=== PATIENT | male | born 1945 | race Caucasian/White ===

== ENCOUNTER 2016-12-02 08:51 | Inpatient (IN) | payer MEDICARE, BC ==
[~2016-12-02] VITALS: Ht 177.8 cm; Wt 83.6 kg
[~2016-12-02 08:51] MED LIST: CRANBERRY CONC500 MG PO; CRANBERRY500 M3 PO; DIOVAN320 MG PO; FISH OIL CONC1000 MG PO; FLOMAX 0.40.4 MG/CAP PO; GLUCOSAMINE/CHONDROI PO; NO HOME MEDICATIONS; NORVASC 10MG10 MG PO; VITAMIN C500 MG PO; [UNRECOGNIZED DRUG - OTHER] PO; [UNRECOGNIZED DRUG - REMARK]
[2017-01-04] VITALS (11 sets, daily range): BP systolic 111–140; BP diastolic 59–86; PULSE 62–81; TEMP 97.5–98.2
[2017-01-04] MEDS ORDERED: DIOVAN 160MG160 MG PO (06:22)
[2017-01-05 01:28] VITALS: BP 132/60; PULSE 71; TEMP 97.5
[2017-01-05 05:31] VITALS: BP 142/59; PULSE 72; TEMP 97.5
[2017-01-05 08:00] LABS: BASO % 0.1 % (0.0-2.0); GRAN # 12.8 (1.4-6.5); GRAN % 88.2 % (42.2-75.2); HEMATOCRIT 44.3 % (42.0-52.0); HEMOGLOBIN 14.8 g/dl (13.5-18.0); LYMPH # 0.4 (1.2-3.4); MEAN CELL VOLUME 91 fl (80.0-100.0); MEAN CORPUSCULAR HEMOGLOBIN 31 pg (27.0-31.0); MEAN CORPUSCULAR HGB CONC 33 g/dl (33.0-37.0); MEAN PLATELET VOLUME 9.5 fl (7.4-10.4); MONO # 1.2 (0.1-0.6); MONO % 7.9 % (1.7-9.3); PLATELET COUNT 210 K/mm3 (130-400); RED BLOOD COUNT 4.86 M/mm3 (4.20-5.60); REDCELL DISTRIBUTION WIDTH-CV 13.1 % (11.5-14.5); WHITE BLOOD COUNT 14.5 K/mm3 (4.8-10.8)
[2017-01-05 08:10] LABS: CALCIUM 8.7 mg/dL (8.4-10.2); CREATININE, serum 0.78 mg/dL (0.66-1.25); POTASSIUM 4.1 mmol/L (3.4-5.0)
[2017-01-05 09:37] VITALS: BP 124/60; PULSE 68; TEMP 98.1
[2017-01-05 13:50] VITALS: BP 131/78; PULSE 69; TEMP 98.1
== END 2017-01-05 14:20 | disposition home or self-care (01) | DRG 716 ==
LOC: INPTSU 01-04 05:22 → SURG 01-04 07:30
PROVIDERS: Urology
PROC: 8E0W4CZ Robotic Assisted Procedure of Trunk Region, Percutaneous Endoscopic Approach (ICD-10-PCS; 2017-01-04)
PROC: 0VB04ZZ Excision of Prostate, Percutaneous Endoscopic Approach (ICD-10-PCS; principal; 2017-01-04 07:30)
DX: C61 Malignant neoplasm of prostate (principal); I10 Essential (primary) hypertension
CPT/HCPCS: A9284; C1713; J0690; J1100; J1170; J1885; J2405; J2704; J2765; J3010; J7120

== ENCOUNTER 2017-06-29 12:30 | Day surgery (SDC) | payer MEDICARE, BC ==
[2017-06-29] VITALS (443 sets, daily range): BP systolic 84–147; BP diastolic 54–104; PULSE 46–64; TEMP 97–97.1; O2SAT 70–100
[~2017-06-29] VITALS: Ht 177.8 cm; Wt 83.4 kg
[~2017-06-29 12:30] MED LIST changes: +DIOVAN 160MG160 MG PO
[2017-06-29] MEDS ORDERED: ASPIRIN 81M81 MG/TA2 PO (13:05)
[2017-06-29 13:14] LABS: HEMATOCRIT 47.1 % (42.0-52.0); HEMOGLOBIN 16.3 g/dl (13.5-18.0); MEAN CELL VOLUME 90 fl (80.0-100.0); MEAN CORPUSCULAR HEMOGLOBIN 31 pg (27.0-31.0); MEAN CORPUSCULAR HGB CONC 35 g/dl (33.0-37.0); MEAN PLATELET VOLUME 9.1 fl (7.4-10.4); PLATELET COUNT 186 K/mm3 (130-400); RED BLOOD COUNT 5.21 M/mm3 (4.20-5.60)
[2017-06-29 13:31] LABS: CALCIUM 9.5 mg/dL (8.4-10.2); CREATININE, serum 0.82 mg/dL (0.66-1.25); PARTIAL THROMBOPLASTIN TIME 28.5 SECONDS (26.0-37.0); POTASSIUM 4.3 mmol/L (3.4-5.0)
[2017-06-29 14:03] LABS: PROTHROMBIN TIME 11.7 SECONDS (9.7-12.8)
[2017-06-30] VITALS (404 sets, daily range): BP systolic 109–126; BP diastolic 59–67; PULSE 59–64; TEMP 97–98.2; O2SAT 90–100
[2017-06-30 06:46] LABS: BASO % 0.4 % (0.0-2.0); EOS # 0.1 (0.0-0.7); EOS % 0.9 % (0-4.0); GRAN # 6.2 (1.4-6.5); GRAN % 80.3 % (42.2-75.2); HEMATOCRIT 40.6 % (42.0-52.0); LYMPH # 0.6 (1.2-3.4); LYMPH % 7.9 % (20.0-51.0); MEAN CELL VOLUME 90 fl (80.0-100.0); MEAN CORPUSCULAR HEMOGLOBIN 31 pg (27.0-31.0); MEAN CORPUSCULAR HGB CONC 34 g/dl (33.0-37.0); MEAN PLATELET VOLUME 9.1 fl (7.4-10.4); MONO # 0.8 (0.1-0.6); MONO % 10.1 % (1.7-9.3); PLATELET COUNT 177 K/mm3 (130-400); RED BLOOD COUNT 4.52 M/mm3 (4.20-5.60); REDCELL DISTRIBUTION WIDTH-CV 12.9 % (11.5-14.5)
[2017-06-30 06:52] LABS: HEMOGLOBIN 13.9 g/dl (13.5-18.0)
[2017-06-30 07:01] LABS: CALCIUM 8.6 mg/dL (8.4-10.2); CREATININE, serum 0.82 mg/dL (0.66-1.25); POTASSIUM 3.9 mmol/L (3.4-5.0)
[2017-06-30] MEDS ORDERED: BRILINTA90 MG PO (09:35)
[2017-06-30] MEDS ORDERED: TOPROL XL 25MG25 MG PO (09:37)
[2017-06-30] MEDS ORDERED: NITROSTAT0.4 MG/TAB SL (09:37)
[2017-06-30] MEDS ORDERED: ASPIRIN 81M81 MG/TA2 PO (09:38)
[2017-06-30] MEDS ORDERED: LIPITOR 40MG TA40 MG PO (09:40)
[2017-06-30] MEDS ORDERED: NORVASC 5MG5 MG/TAB PO (09:41)
== END 2017-06-30 13:00 | disposition home or self-care (01) ==
LOC: COL.CAR 12:30 → ICU 15:30 → COL.CAR 06-30 13:00
DX: I25.110 Atherosclerotic heart disease of native coronary artery with unstable angina pectoris (principal); I10 Essential (primary) hypertension; Z80.9 Family history of malignant neoplasm, unspecified; E78.2 Mixed hyperlipidemia; Z82.3 Family history of stroke
CPT/HCPCS: OP; C9600; J0461; J0583; J2250; J3010; Q9967

== ENCOUNTER 2017-08-03 18:40 | Emergency (ER) | payer MEDICARE, BC ==
[~2017-08-03] VITALS: Ht 175.3 cm; Wt 80.5 kg
[~2017-08-03 18:40] MED LIST changes: +ASPIRIN 81M81 MG/TA2 PO; +BRILINTA90 MG PO; +LIPITOR 40MG TA40 MG PO; +NITROSTAT0.4 MG/TAB SL; +NORVASC 5MG5 MG/TAB PO; +TOPROL XL 25MG25 MG PO
[2017-08-03 18:45] VITALS: BP 141/65; TEMP 97.6
[2017-08-03 19:32] VITALS: PULSE 60
== END 2017-08-03 19:43 | disposition home or self-care (01) ==
LOC: COL.ER 18:40
DX: S50.11XA Contusion of right forearm, initial encounter (principal); I10 Essential (primary) hypertension; E78.5 Hyperlipidemia, unspecified; I25.10 Atherosclerotic heart disease of native coronary artery without angina pectoris; Z79.82 Long term (current) use of aspirin; Z88.6 Allergy status to analgesic agent; Z95.5 Presence of coronary angioplasty implant and graft; X58.XXXA Exposure to other specified factors, initial encounter; Y92.009 Unspecified place in unspecified non-institutional (private) residence as the place of occurrence of the external cause

== ENCOUNTER 2017-10-21 12:36 | Outpatient (RCR) | payer MEDICARE, BC | END 2017-10-23 | disposition home or self-care (01) | LOC: COL.CR | DX: Z48.812 Encounter for surgical aftercare following surgery on the circulatory system (principal); Z95.5 Presence of coronary angioplasty implant and graft; I25.10 Atherosclerotic heart disease of native coronary artery without angina pectoris ==

== ENCOUNTER 2017-10-31 14:44 | Outpatient (RCR) | payer MEDICARE, BC | END 2017-11-02 12:53 | disposition home or self-care (01) | LOC: COL.CR 14:44 | DX: Z48.812 Encounter for surgical aftercare following surgery on the circulatory system (principal); Z95.5 Presence of coronary angioplasty implant and graft ==

== ENCOUNTER 2018-02-19 12:40 | Emergency (ER) | payer MEDICARE, BC ==
[~2018-02-19] VITALS: Ht 175.3 cm; Wt 78.2 kg
[2018-02-19 12:42] VITALS: TEMP 98.6
[2018-02-19] MEDS ORDERED: AMOXICILLIN 8751 TAB PO (12:48)
[2018-02-19 13:16] LABS: BASO % 0.5 % (0.0-2.0); EOS # 0.1 (0.0-0.7); EOS % 1.5 % (0-4.0); GRAN # 5.8 (1.4-6.5); GRAN % 76.4 % (42.2-75.2); HEMATOCRIT 40.6 % (42.0-52.0); HEMOGLOBIN 13.6 g/dl (13.5-18.0); LYMPH # 0.6 (1.2-3.4); LYMPH % 8.3 % (20.0-51.0); MEAN CELL VOLUME 93 fl (80.0-100.0); MEAN CORPUSCULAR HEMOGLOBIN 31 pg (27.0-31.0); MEAN CORPUSCULAR HGB CONC 34 g/dl (33.0-37.0); MEAN PLATELET VOLUME 9.3 fl (7.4-10.4); MONO % 12.9 % (1.7-9.3); PLATELET COUNT 205 K/mm3 (130-400); RED BLOOD COUNT 4.37 M/mm3 (4.20-5.60); REDCELL DISTRIBUTION WIDTH-CV 13.4 % (11.5-14.5)
[2018-02-19 13:27] LABS: ALBUMIN 3.4 gm/dL (3.5-5.0); BILIRUBIN,TOTAL 1.3 mg/dL (0.0-1.0); CALCIUM 8.5 mg/dL (8.4-10.2); CREATININE, serum 0.72 mg/dL (0.66-1.25); POTASSIUM 3.8 mmol/L (3.4-5.0); TOTAL PROTEIN 6.3 gm/dL (6.4-8.2)
[2018-02-19] MEDS ORDERED: ULTRAM 50MG TAB50 MG PO (15:15)
[2018-02-19 15:31] VITALS: BP 132/80; PULSE 72
== END 2018-02-19 15:32 | disposition home or self-care (01) ==
LOC: COL.ER 12:40
PROVIDERS: Nurse Practitioner Primary Care
DX: L03.114 Cellulitis of left upper limb (principal); Z98.890 Other specified postprocedural states; Z95.9 Presence of cardiac and vascular implant and graft, unspecified; Z79.82 Long term (current) use of aspirin
CPT/HCPCS: J0696; J2270

== ENCOUNTER → 2019-04-18 | Outpatient (CLI) | payer MEDICARE, BC ==
[~2019-04-18] MED LIST changes: +AMOXICILLIN 8751 TAB PO; +ULTRAM 50MG TAB50 MG PO
== END ==
LOC: COL.RAD 12:51
DX: M50.30 Other cervical disc degeneration, unspecified cervical region (principal); M48.02 Spinal stenosis, cervical region

== ENCOUNTER 2020-01-20 15:22 | Emergency (ER) | payer MEDICARE, BC ==
[~2020-01-20] VITALS: Ht 172.7 cm; Wt 70.5 kg
[2020-01-20 15:32] VITALS: TEMP 97.1
[2020-01-20 15:59] LABS: BASO # 0.1 (0.0-0.2); BASO % 0.9 % (0.0-2.0); EOS # 0.1 (0.0-0.7); EOS % 1.6 % (0-4.0); GRAN % 74.6 % (42.2-75.2); HEMATOCRIT 43.7 % (42.0-52.0); HEMOGLOBIN 14.9 g/dl (13.5-18.0); LYMPH # 0.8 (1.2-3.4); LYMPH % 11.6 % (20.0-51.0); MEAN CELL VOLUME 90 fl (80.0-100.0); MEAN CORPUSCULAR HEMOGLOBIN 31 pg (27.0-31.0); MEAN CORPUSCULAR HGB CONC 34 g/dl (33.0-37.0); MEAN PLATELET VOLUME 9.4 fl (7.4-10.4); MONO # 0.7 (0.1-0.6); PLATELET COUNT 214 K/mm3 (130-400); RED BLOOD COUNT 4.84 M/mm3 (4.20-5.60); REDCELL DISTRIBUTION WIDTH-CV 12.7 % (11.5-14.5)
[2020-01-20 16:04] LABS: ALANINE AMINOTRANSFERASE 15 U/L (4-49); ALBUMIN 4.1 gm/dL (3.5-5.0); ALKALINE PHOSPHATASE 78 U/L (50-136); ANION GAP 7 mmol/L (7-16); AST,SGOT 24 U/L (15-37); BILIRUBIN,TOTAL 0.8 mg/dL (0.0-1.0); BLOOD UREA NITROGEN 18 mg/dL (9-20); CALCIUM 9.3 mg/dL (8.4-10.2); CARBON DIOXIDE 27 mmol/L (22-30); CHLORIDE 103 mmol/L (98-107); CREATINE KINASE 84 U/L (55-170); CREATININE, serum 0.85 (0.66-1.25); GLUCOSE 116 mg/dL (74-106); LIPASE 370 U/L (23-300); PROTHROMBIN TIME 11.2 SECONDS (9.7-12.8); SODIUM 137 mmol/L (137-145); TOTAL PROTEIN 6.9 gm/dL (6.4-8.2)
[2020-01-20 16:07] LABS: C-REACTIVE PROTEIN < 0.5 mg/dL (0.0-0.9)
[2020-01-20 16:15] LABS: TROPONIN-I < 0.012 ng/mL (0.000-0.035)
[2020-01-20 17:36] LABS: COLLECTION METHOD CLEAN CATCH
[2020-01-20] MEDS ORDERED: PERCOCET 325 MG1 TA2 PO (17:38)
[2020-01-20 17:42] LABS: MUCOUS Present /lpf; PH 7 (5-8); SQUAMOUS EPITHELIAL None Seen /hpf; URINE APPEARANCE Clear; URINE BACTERIA None Seen /hpf; URINE BILIRUBIN Negative (NEGATIVE); URINE BLOOD 2+ (NEGATIVE); URINE COLOR Yellow; URINE GLUCOSE Negative (NEGATIVE); URINE KETONE Trace (NEGATIVE); URINE LEUKOCYTE ESTERASE Negative (NEGATIVE); URINE NITRATE Negative (NEGATIVE); URINE PROTEIN(semi-quant) Negative (NEGATIVE); URINE RBC 20-50 /hpf; URINE UROBILINOGEN Negative (NEGATIVE)
[2020-01-20 18:35] VITALS: BP 142/71; PULSE 46
== END 2020-01-20 18:30 | disposition home or self-care (01) ==
LOC: COL.ER 15:22
PROVIDERS: Emergency Medicine
DX: N20.2 Calculus of kidney with calculus of ureter (principal); R11.0 Nausea; I10 Essential (primary) hypertension; I25.10 Atherosclerotic heart disease of native coronary artery without angina pectoris; Z85.46 Personal history of malignant neoplasm of prostate; Z95.5 Presence of coronary angioplasty implant and graft; Z90.49 Acquired absence of other specified parts of digestive tract; Z79.82 Long term (current) use of aspirin; Z79.891 Long term (current) use of opiate analgesic; Z79.02 Long term (current) use of antithrombotics/antiplatelets
CPT/HCPCS: J1885; J2405; J2550; J3010; J7030; Q9967

== ENCOUNTER 2020-09-06 13:21 | Emergency (ER) | payer MEDICARE, BC ==
[~2020-09-06] VITALS: Ht 177.8 cm; Wt 75.0 kg
[~2020-09-06 13:21] MED LIST changes: +PERCOCET 325 MG1 TA2 PO
[2020-09-06 13:30] VITALS: TEMP 97.4
[2020-09-06] MEDS ORDERED: AMOXICILLIN 8751 TAB PO (13:51)
[2020-09-06 14:00] VITALS: BP 146/80; PULSE 81
== END 2020-09-06 14:00 | disposition home or self-care (01) ==
LOC: COL.ER 13:21
DX: A28.0 Pasteurellosis (principal); I25.10 Atherosclerotic heart disease of native coronary artery without angina pectoris; I10 Essential (primary) hypertension; Z88.6 Allergy status to analgesic agent; Z79.02 Long term (current) use of antithrombotics/antiplatelets; Z79.82 Long term (current) use of aspirin; W55.01XA Bitten by cat, initial encounter

== ENCOUNTER 2021-12-25 17:55 | Emergency (ER) | payer MEDICARE, BC ==
[~2021-12-25] VITALS: Ht 175.3 cm; Wt 79.5 kg
[2021-12-25 18:05] VITALS: TEMP 97.6
[2021-12-25 18:28] LABS: BASO % 0.5 % (0.0-2.0); EOS % 0.5 % (0.0-4.0); GRAN # 4.5 K/mm3 (1.4-6.5); GRAN % 82.2 % (42.2-75.2); HEMATOCRIT 43.7 % (42.0-52.0); HEMOGLOBIN 15.2 g/dl (13.5-18.0); LYMPH # 0.5 K/mm3 (1.2-3.4); LYMPH % 9.4 % (20.0-51.0); MEAN CELL VOLUME 90 fl (80.0-100.0); MEAN CORPUSCULAR HEMOGLOBIN 31 pg (27-31); MEAN CORPUSCULAR HGB CONC 35 g/dl (33.0-37.0); MEAN PLATELET VOLUME 9.4 fl (7.4-10.4); MONO # 0.4 K/mm3 (0.1-0.6); MONO % 7.2 % (1.7-9.3); PLATELET COUNT 186 K/mm3 (130-400); RED BLOOD COUNT 4.88 M/mm3 (4.20-5.60); REDCELL DISTRIBUTION WIDTH-CV 13.2 % (11.5-14.5)
[2021-12-25 18:36] LABS: INR 1.1 (0.8-3.0); PROTHROMBIN TIME 12.8 SECONDS (9.7-12.8)
[2021-12-25 18:48] LABS: ALANINE AMINOTRANSFERASE 14 U/L (0-55); ALBUMIN 3.9 gm/dL (3.4-4.8); ALKALINE PHOSPHATASE 66 U/L (40-150); ANION GAP 10 mmol/L (7-16); AST,SGOT 16 U/L (5-34); BILIRUBIN,TOTAL 1.3 mg/dL (0.2-1.2); BLOOD UREA NITROGEN 17 mg/dL (8-26); CALCIUM 9.2 mg/dL (8.4-10.2); CARBON DIOXIDE 20 mmol/L (23-31); CHLORIDE 110 mmol/L (98-107); CREATINE KINASE 78 U/L (30-200); CREATININE, serum 0.83 mg/dL (0.72-1.25); GLUCOSE 154 mg/dL (70-99); LIPASE 154 U/L (8-78); SODIUM 140 mmol/L (136-145); TOTAL PROTEIN 6.4 gm/dL (6.2-8.1)
[2021-12-25 18:57] LABS: TROPONIN-I < 0.010 ng/mL (0.00-0.033)
[2021-12-25] MEDS ORDERED: PROTONIX 40MG T40 MG PO (21:20)
[2021-12-25 21:38] VITALS: BP 155/78; PULSE 49
== END 2021-12-25 21:38 | disposition home or self-care (01) ==
LOC: COL.ER 17:55
PROVIDERS: Emergency Medicine
DX: R07.2 Precordial pain (principal); R10.11 Right upper quadrant pain; E80.7 Disorder of bilirubin metabolism, unspecified; R74.8 Abnormal levels of other serum enzymes; Z95.5 Presence of coronary angioplasty implant and graft; Z79.02 Long term (current) use of antithrombotics/antiplatelets
CPT/HCPCS: Q9967

== ENCOUNTER → 2022-01-04 | Outpatient (CLI) | payer MEDICARE, BC ==
[~2022-01-04] MED LIST changes: +PROTONIX 40MG T40 MG PO
== END ==
LOC: COL.RAD 06:14
DX: R10.11 Right upper quadrant pain (principal)
CPT/HCPCS: A9537

== ENCOUNTER 2022-08-08 10:42 | Inpatient (IN) | payer MEDICARE, BC ==
[2022-08-08] VITALS (545 sets, daily range): BP systolic 115–145; BP diastolic 86–99; PULSE 42–44; TEMP 97.3–98.2; O2SAT 78–100
[~2022-08-08] VITALS: Ht 170.2 cm; Wt 82.3 kg
[2022-08-08 11:01] LABS: BASO % 0.4 % (0.0-2.0); EOS # 0.1 K/mm3 (0.0-0.7); EOS % 1.2 % (0.0-4.0); GRAN # 3.5 K/mm3 (1.4-6.5); GRAN % 70.2 % (42.2-75.2); HEMATOCRIT 45.3 % (42.0-52.0); HEMOGLOBIN 15.7 g/dl (13.5-18.0); LYMPH # 0.6 K/mm3 (1.2-3.4); MEAN CELL VOLUME 90 fl (80.0-100.0); MEAN CORPUSCULAR HEMOGLOBIN 31 pg (27-31); MEAN CORPUSCULAR HGB CONC 35 g/dl (33.0-37.0); MEAN PLATELET VOLUME 9.6 fl (7.4-10.4); MONO # 0.8 K/mm3 (0.1-0.6); MONO % 15.8 % (1.7-9.3); PLATELET COUNT 174 K/mm3 (130-400); RED BLOOD COUNT 5.06 M/mm3 (4.20-5.60); REDCELL DISTRIBUTION WIDTH-CV 12.9 % (11.5-14.5)
[2022-08-08 11:11] LABS: PROTHROMBIN TIME 11.5 SECONDS (9.7-12.8)
[2022-08-08 11:14] LABS: ALANINE AMINOTRANSFERASE 18 U/L (0-55); ALBUMIN 3.8 gm/dL (3.4-4.8); ALKALINE PHOSPHATASE 78 U/L (40-150); ANION GAP 10 mmol/L (7-16); AST,SGOT 20 U/L (5-34); BILIRUBIN,TOTAL 1.2 mg/dL (0.2-1.2); BLOOD UREA NITROGEN 14 mg/dL (8-26); CALCIUM 9.1 mg/dL (8.4-10.2); CARBON DIOXIDE 25 mmol/L (23-31); CHLORIDE 105 mmol/L (98-107); CREATININE, serum 1.06 mg/dL (0.72-1.25); GLUCOSE 101 mg/dL (70-99); MAGNESIUM 2.3 mg/dL (1.6-2.6); PARTIAL THROMBOPLASTIN TIME 25.4 SECONDS (26.0-37.0); POTASSIUM 4.7 mmol/L (3.5-4.5); SODIUM 140 mmol/L (136-145); TOTAL PROTEIN 6.5 gm/dL (6.2-8.1)
[2022-08-08 11:30] LABS: TROPONIN-I < 0.010 ng/mL (0.00-0.033)
[2022-08-08 14:18] LABS: COLLECTION METHOD CLEAN CATCH
[2022-08-08 14:22] LABS: PH 7.5 (5.0-8.5); URINE APPEARANCE Clear (CLEAR/HAZY); URINE COLOR Yellow (YELLOW); URINE PROTEIN(semi-quant) Negative (NEGATIVE)
[2022-08-08 14:23] LABS: URINE BLOOD Negative (NEGATIVE); URINE GLUCOSE Negative (NEGATIVE); URINE KETONE Negative (NEGATIVE); URINE NITRATE Negative (NEGATIVE); URINE UROBILINOGEN 0.2 E.U/dL (0.2-1.0)
[2022-08-08 14:39] LABS: MUCOUS Present (NOT PRESENT); SQUAMOUS EPITHELIAL None Seen /hpf (0-10); URINE BACTERIA None Seen /hpf (NONE SEEN); URINE RBC 0-2 /hpf (0-2); URINE WBC 0-2 /hpf (0-2)
[2022-08-08] MEDS ORDERED: ZETIA 10MG TAB10 MG PO ×2 (15:20→15:21)
[2022-08-08] MEDS ORDERED: FLONASEALLERGY NS (15:21)
[2022-08-08] MEDS ORDERED: NITROSTAT0.4 MG/TAB SL (15:21)
[2022-08-08] MEDS ORDERED: ARICEPT10 MG PO (15:22)
[2022-08-08] MEDS ORDERED: MICARDIS20 MG PO (15:25)
[2022-08-08] MEDS ORDERED: NAMENDA 10MG TA10 MG PO (15:27)
[2022-08-08] MEDS ORDERED: KAPSPARGO SPRIN25 MG PO (15:28)
--- NOTE | 2022-08-08 16:41 | NUR ---
PT ADMITTED FROM ED AT 1330 FOR BRADYCARDIA. VSS UPON ADMISSION, HEART RATE IN THE 40S, PT ON ROOM AIR. PT DENIES PAIN, N/V, DIZZINESS. ASSESSMENT WNL OTHER THAN BRADYCARDIA. PT IS ALERT AND ORIENTED UPON ADMISSION HOWEVER PT'S DAUGHTER STATES PT HAS SOME INTERMITTENT CONFUSION AND IS BEING EVALUATED BY NEURO (DR TARIQ MATOS) FOR LEWY BODY DEMENTIA. THIS NURSE ATTEMPTED MED REC HOWEVER THERE ARE SOME DISCREPANCIES BETWEEN MED LIST PT'S DAUGHTER HAS, WHAT PT STATES HE TAKES, AND WHAT PHARMACY HAS RECORD OF. DAUGHTER IS TO BRING IN UPDATED MED LIST. PT INSTRUCTED TO USE CALL LIGHT FOR NEEDS AND TO NOT GET OUT OF BED WITHOUT ASSISTANCE. BED ALARM ALSO IN PLACE FOR PT SAFETY.
--- NOTE | 2022-08-08 20:00 | NUR ---
SHIFT REPORT RECEIVED. PT A&O x4. PT SITTING IN BED WATCHING TV. NO IV RUNNING AT THIS TIME. PT ON RA WITH CLEAR LUNG SOUNDS. PT NOTED TO BE BRADYCARDIC BUT ASYMPTOMATIC AT THIS TIME. PT EDUCATED THAT DUE TO BRADYCARIA AND EARLIER SYNCOPAL EPISODE, BED ALARM ON AND PT NOT TO GET UP FROM BED WO ASSISTANCE PAVER. PT SBA TO USE URINAL. URINE NOTED TO BE YELLOW AND CLEAR. PT WITH NO C/O PAIN, DIZZINESS, OR LIGHTHEADEDNESS AT THIS TIME. BED ALARM ON AND CALL LIGHT AT PT BEDSIDE.
[2022-08-09] VITALS (658 sets, daily range): BP systolic 102–143; BP diastolic 63–83; PULSE 42–116; TEMP 97.4–98.7; O2SAT 58–100
[2022-08-09 05:05] LABS: BASO % 0.9 % (0.0-2.0); EOS # 0.1 K/mm3 (0.0-0.7); EOS % 1.4 % (0.0-4.0); GRAN # 2.2 K/mm3 (1.4-6.5); GRAN % 64.7 % (42.2-75.2); HEMATOCRIT 43.6 % (42.0-52.0); HEMOGLOBIN 15.3 g/dl (13.5-18.0); LYMPH # 0.6 K/mm3 (1.2-3.4); LYMPH % 16.8 % (20.0-51.0); MEAN CELL VOLUME 88 fl (80.0-100.0); MEAN CORPUSCULAR HEMOGLOBIN 31 pg (27-31); MEAN CORPUSCULAR HGB CONC 35 g/dl (33.0-37.0); MEAN PLATELET VOLUME 9.4 fl (7.4-10.4); MONO # 0.6 K/mm3 (0.1-0.6); MONO % 15.9 % (1.7-9.3); PLATELET COUNT 165 K/mm3 (130-400); RED BLOOD COUNT 4.94 M/mm3 (4.20-5.60)
[2022-08-09 05:20] LABS: ALBUMIN 3.5 gm/dL (3.4-4.8); CALCIUM 8.5 mg/dL (8.4-10.2); CREATININE, serum 0.88 mg/dL (0.72-1.25); MAGNESIUM 2.1 mg/dL (1.6-2.6); PHOSPHOROUS 2.6 mg/dL (2.3-4.7); POTASSIUM 4.2 mmol/L (3.5-4.5)
[2022-08-09 10:27] LABS: PROTHROMBIN TIME 11.9 SECONDS (9.7-12.8)
[2022-08-09 10:34] LABS: CALCIUM 8.3 mg/dL (8.4-10.2); CREATININE, serum 0.86 mg/dL (0.72-1.25)
--- NOTE | 2022-08-09 10:34 | NUR ---
1020 REPORT TO BOARD RUNNER FOR PACEMAKER PLACEMENT. 1034 BOARD RUNNER HERE TO GET CONSENT AND TAKE PT TO BOARD RUNNER FOR PROCEDURE. PT CHANGED TO MEDICAL STATUS BUT WILL COME BACK TO ICU POST PROCEDURE UNTIL MEDICAL FLOOR HAS A ROOM AVAIL.
--- NOTE | 2022-08-09 10:36 | NUR ---
1010 ADITIONAL IV STARTED IN LEFT FA #20 WAYNE.
--- NOTE | 2022-08-09 11:11 | NUR ---
See merge for all medication, assessment, intervention, and vital sign times. Dr. Cortez advised of patient eating at 0800.
--- NOTE | 2022-08-09 12:20 | NUR ---
[address] REPORTER NURSE OBTAINED. 1220 PT RETUNRED TO ICU BED 8 POST PACEMAKER PLACEMENT. INCISION TO LEFT UPPER CHEST WITH DRESSING CDI. SLING TO LUE PLACED TO BE KEPT ON FOR 24 HOURS. HEAD OF BED 30 DEGREES. PT VS WNL. RESTING AT THIS TIME. WILL MONITOR VS PER PROTOCOL. AT BEDSIDE. PT DENIES PAIN. CALL LIGHT WITHIN REACH. NO FURTHER NEEDS AT THIS TIME.
--- NOTE | 2022-08-09 13:13 | NUR ---
[facility] met with patient and patients Syeda Martinez" [phone] / [phone] at bedside to complete intake. Patient lives at home with his in [place]. Patient has a hx of dementia, however is still able to complete all of his ADL's and IADL's independently. Patient does not utilize any DME to assist with mobility at home, but has access to a cane and a walker. Patient has no home oxygen needs. PCP is Dr. Metz, and he utilizes [facility] for prescriptions. Patient verbalizes that he does have a [facility]POA-[facility] established and per Jessica, their PCP office should have a copy. Phone call made to PCP office and request made to have [facility]POA-[facility] faxed to this AL[facility].
--- NOTE | 2022-08-09 13:33 | NUR ---
[facility] received and placed on the patients chart.
--- NOTE | 2022-08-09 17:45 | NUR ---
PATIENT ARRIVED AT UNIT AFTER LEFT PACEMAKER PLACEMENT. INCISION SITE HAS DRESSING ON. NO DRAINAGE, OR SWELLING ON SITE. IV IS ON RIGHT AC AND LEFT FOREARM AND IS CLEAN, DRY, AND INTACT. HE IS ALERT AND ORIENTED X4, ON ROOM AIR, AND DENIES ANY PAIN OR DISCOMFORT AT THIS TIME. HAS SOME WET COUGH WHICH STARTED FIVE MONTHS AGO. IV ANCEF IS GIVEN. BED IS ON LOWEST POSITION AND CALL LIGHT IS ON PLACE.
[2022-08-10 00:19] VITALS: BP 130/74; PULSE 62; TEMP 99
[2022-08-10 04:27] VITALS: BP 135/85; PULSE 60; TEMP 98.5
[2022-08-10 06:49] LABS: BASO % 0.5 % (0.0-2.0); EOS % 0.5 % (0.0-4.0); GRAN # 4.6 K/mm3 (1.4-6.5); GRAN % 78.1 % (42.2-75.2); HEMATOCRIT 43.5 % (42.0-52.0); HEMOGLOBIN 15.8 g/dl (13.5-18.0); LYMPH # 0.5 K/mm3 (1.2-3.4); LYMPH % 9.1 % (20.0-51.0); MEAN CELL VOLUME 87 fl (80.0-100.0); MEAN CORPUSCULAR HEMOGLOBIN 32 pg (27-31); MEAN CORPUSCULAR HGB CONC 36 g/dl (33.0-37.0); MEAN PLATELET VOLUME 9.6 fl (7.4-10.4); MONO # 0.7 K/mm3 (0.1-0.6); MONO % 11.5 % (1.7-9.3); PLATELET COUNT 168 K/mm3 (130-400); RED BLOOD COUNT 5.02 M/mm3 (4.20-5.60); REDCELL DISTRIBUTION WIDTH-CV 12.8 % (11.5-14.5)
[2022-08-10 07:07] LABS: ALBUMIN 3.4 gm/dL (3.4-4.8); CALCIUM 8.5 mg/dL (8.4-10.2); CREATININE, serum 0.84 mg/dL (0.72-1.25); PHOSPHOROUS 2.7 mg/dL (2.3-4.7); POTASSIUM 3.9 mmol/L (3.5-4.5)
[2022-08-10 07:43] VITALS: BP 133/82; PULSE 63; TEMP 97.7
--- NOTE | 2022-08-10 08:45 | NUR ---
Discussed Potassium with maría Odonnell not to give
--- NOTE | 2022-08-10 10:30 | NUR ---
Pt doing well, hoping to get to go home. Awaiting discharge orders. has been in and rounded. Pt daughter and at beside.
[2022-08-10] MEDS ORDERED: CEPHALEXIN500 M1 PO (12:04)
[2022-08-10] MEDS ORDERED: PRINIVIL5 MG PO (12:05)
[2022-08-10] MEDS ORDERED: TOPROL XL 25MG25 MG PO (12:05)
--- NOTE | 2022-08-10 13:10 | NUR ---
Patient discharged to home with his and daughter. IV is discontinued. Discharge instruction is reviewed with patient and family. Patient is escorted to his vehicle by this nurse.
== END 2022-08-10 13:10 | disposition home or self-care (01) | DRG 244 ==
LOC: COL.ER 10:42 → ICU 11:31 → MEDICAL 08-09 17:30
PROVIDERS: Family Medicine; ADMIT Internal Medicine
PROC: 0JH606Z Insertion of Pacemaker, Dual Chamber into Chest Subcutaneous Tissue and Fascia, Open Approach (ICD-10-PCS; principal; 2022-08-09)
PROC: 02H63JZ Insertion of Pacemaker Lead into Right Atrium, Percutaneous Approach (ICD-10-PCS; 2022-08-09)
PROC: 02HK3JZ Insertion of Pacemaker Lead into Right Ventricle, Percutaneous Approach (ICD-10-PCS; 2022-08-09)
PROC: B2111ZZ Fluoroscopy of Multiple Coronary Arteries using Low Osmolar Contrast (ICD-10-PCS; 2022-08-09)
DX: I49.5 Sick sinus syndrome (principal); I10 Essential (primary) hypertension; I25.10 Atherosclerotic heart disease of native coronary artery without angina pectoris; E78.5 Hyperlipidemia, unspecified; G47.33 Obstructive sleep apnea (adult) (pediatric); F03.90 Unspecified dementia, unspecified severity, without behavioral disturbance, psychotic disturbance, mood disturbance, and anxiety; Z79.82 Long term (current) use of aspirin; Z79.02 Long term (current) use of antithrombotics/antiplatelets; Z95.5 Presence of coronary angioplasty implant and graft; Z90.49 Acquired absence of other specified parts of digestive tract; Z79.2 Long term (current) use of antibiotics; Z79.899 Other long term (current) drug therapy; Z88.5 Allergy status to narcotic agent; Z90.79 Acquired absence of other genital organ(s)
CPT/HCPCS: C1769; C1785; C1894; C1898; J0690; J2250; J3010; J7030